=== PATIENT | male | born 1995 ===

== ENCOUNTER 2018-07-21 03:50 | Inpatient (IN) ==
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
[2018-07-21] MEDS ORDERED: fentaNYL 10 mcg/mL Premix Drip 2,500 MCG/250 ML BAG IV.SIG PRN (04:06)
[2018-07-21] MEDS ORDERED: Propofol 1000 mg/100 ml Inj 1,000 MG/100 ML BOTTLE IV.CONT PRN (04:06)
[2018-07-21 04:11] LABS: Baso # (Auto) 0.1 th/mm3 (0.0-0.2); Baso % (Auto) 0.9 % (0.0-2.0); Eos # (Auto) 0.4 th/mm3 (0.0-0.4); Eos % (Auto) 3.2 % (0.0-4.0); Hematocrit 38.1 % (39.0-51.0); Hemoglobin 12.9 gm/dL (13.0-17.0); Lymph # (Auto) 3.7 th/mm3 (1.0-4.8); Mean Corpuscular Hemoglobin 33.1 pg (27.0-34.0); Mean Corpuscular Volume 97.3 fL (80.0-100.0); Mean Platelet Volume 7.7 fL (7.0-11.0); Mono # (Auto) 1.1 th/mm3 (0.0-0.9); Mono % (Auto) 8.4 % (0.0-8.0); Neut # (Auto) 7.8 th/mm3 (1.8-7.7); Neut % (Auto) 59.5 % (16.0-70.0); Platelet Count 251 th/mm3 (150-450); Red Blood Count 3.91 mil/mm3 (4.50-5.90); Red Cell Distribution Width 13.1 % (11.6-17.2); White Blood Count 13.1 th/mm3 (4.0-11.0)
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
[2018-07-21 04:23] LABS: Activated Partial Thrombo Time 31.4 sec (23.4-31.7); INR 0.9 Ratio; Prothrombin Time 9.5 sec (9.8-11.6)
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
[2018-07-21] MEDS ORDERED: Propofol Inj 500 MG/50 ML Vial ONE (04:44)
[2018-07-21 04:52] LABS: Calcium 7.6 mg/dL (8.5-10.1); Carbon Dioxide 20.5 meq/L (21.0-32.0); Potassium 3.5 meq/L (3.5-5.1)
[2018-07-21] MEDS: Sod Chloride 0.9% Inj 1,000 ML IV.CONT SCH ×2 (05:22→18:53)
[2018-07-21 05:24] LABS: ABG Base Excess -3.2 mmol/L (-2-2); ABG PCO2 44 mmHg (38-42); ABG PO2 405 mmHg (61-120)
[2018-07-21 05:30] LABS: Amphetamine Screen,Urine Neg (Neg); Barbiturate Screen,Urine Pos (Neg); Cannabinoid Screen,Urine Neg (Neg); Cocaine Screen,Urine Neg (Neg)
[2018-07-21 05:32] LABS: Bilirubin,Urine Negative (Negative); Clarity,Urine Clear (Clear); Color,Urine Straw (Yellw/Straw); Glucose,Urine (UA) Negative (Negative); Hyaline Casts,Urine 1 /lpf (0-3); Leukocyte Esterase,Urine Negative (Negative); Mucus,Urine Few /lpf (Occasional); Nitrite,Urine Negative (Negative); Specific Gravity,Urine 1.036 (1.002-1.035)
[2018-07-21 05:33] LABS: Opiate Screen,Urine Neg (Neg)
[2018-07-21] MEDS ORDERED: Magnesium Sulfate Inj 4 GM in Sodium Chlor 0.9% Inj 92 ML IV.SIG PRN (06:15)
[2018-07-21] MEDS ORDERED: Magnesium Sulfate Inj 2 GM in Sodium Chlor 0.9% Inj 96 ML IV.SIG PRN (06:15)
[2018-07-21] MEDS ORDERED: Potassium Chlor 40 mEq Premix 40 MEQ/100 ML PIGGYBACK IV.SIG PRN ×2 (06:15)
[2018-07-21] MEDS ORDERED: Potassium Chlor 20 mEq Premix 20 MEQ/100 ML PIGGYBACK IV.SIG PRN ×2 (06:15)
[2018-07-21] MEDS ORDERED: Potassium Phosphate 500 MG Soluble Tablet PO PRN ×2 (06:15)
[2018-07-21] MEDS ORDERED: Potassium Chloride Liq 20 MEQ/15 ML UDC PO PRN ×2 (06:15)
[2018-07-21] MEDS ORDERED: Magnesium Oxide 400 MG Tablet PO PRN (06:15)
[2018-07-21] MEDS ORDERED: Potassium Phosphate Inj 30 MMOL in Sodium Chlor 0.9% Inj 250 ML IV.SIG PRN (06:15)
[2018-07-21] MEDS ORDERED: Sodium Phosphate Inj 30 MMOL in Sodium Chlor 0.9% Inj 250 ML IV.SIG PRN (06:15)
[2018-07-21] MEDS: Propofol 1000 mg/100 ml Inj 1,000 MG/100 ML BOTTLE IV.CONT PRN ×2 (08:15→21:15)
[2018-07-21] MEDS: Pantoprazole Inj 40 MG Vial IV.PUSH SCH (08:54)
[2018-07-21] MEDS: Docusate Sodium Liq 100 MG/10 ML UDC PO SCH ×2 (08:54→20:36)
[2018-07-21] MEDS: Sodium Chloride 0.9% 2 ML Flush BID IV.FLUSH SCH ×2 (08:54→20:39)
[2018-07-21] MEDS: Chlorhexidine 0.12% Oral Kit 15 ML UDC OROPHARYNG SCH ×2 (08:54→20:33)
[2018-07-21] MEDS: Multivitamin Inj 10 ML, Thiamine Inj 100 MG, Folic Acid Inj 1 MG in Sodium Chlor 0.9% I... IV.SIG SCH (09:06)
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
[2018-07-21] MEDS: Oral Hygiene Kit OROPHARYNG SCH ×2 (13:00→18:54)
[2018-07-21] MEDS: Acetaminophen 325 MG Tablet PO PRN (13:30)
[2018-07-21] MEDS: QUEtiapine 25 MG Tablet PO SCH (18:37)
[2018-07-21] MEDS ORDERED: Divalproex 500 MG DR Tablet PO SCH (21:00)
[2018-07-21] MEDS: Vancomycin Inj 1,000 MG in Sodium Chlor 0.9% Inj 250 ML IV.SIG SCH (22:44)
[2018-07-22] MEDS: Oral Hygiene Kit OROPHARYNG SCH ×4 (00:19→18:07)
[2018-07-22] MEDS: Acetaminophen 325 MG Tablet PO PRN (00:26)
[2018-07-22] MEDS: Propofol 1000 mg/100 ml Inj 1,000 MG/100 ML BOTTLE IV.CONT PRN ×2 (03:08→08:45)
[2018-07-22] MEDS: Sod Chloride 0.9% Inj 1,000 ML IV.CONT SCH ×3 (03:10→21:09)
[2018-07-22] MEDS ORDERED: Chlorhexidine Gluconate 2% 1 Pack (2 Cloths) TOPICAL PRN (04:00)
[2018-07-22 04:58] LABS: Baso % (Auto) 0.4 % (0.0-2.0); Eos # (Auto) 0.1 th/mm3 (0.0-0.4); Eos % (Auto) 0.8 % (0.0-4.0); Hematocrit 33.7 % (39.0-51.0); Hemoglobin 11.7 gm/dL (13.0-17.0); Lymph # (Auto) 0.9 th/mm3 (1.0-4.8); Lymph % (Auto) 8.6 % (9.0-44.0); Mean Corpuscular HGB Conc 34.6 % (32.0-36.0); Mean Corpuscular Hemoglobin 33.5 pg (27.0-34.0); Mean Corpuscular Volume 96.7 fL (80.0-100.0); Mean Platelet Volume 7.4 fL (7.0-11.0); Mono # (Auto) 0.7 th/mm3 (0.0-0.9); Mono % (Auto) 6.6 % (0.0-8.0); Neut # (Auto) 8.5 th/mm3 (1.8-7.7); Neut % (Auto) 83.6 % (16.0-70.0); Platelet Count 213 th/mm3 (150-450); Red Blood Count 3.48 mil/mm3 (4.50-5.90); Red Cell Distribution Width 13.2 % (11.6-17.2); White Blood Count 10.2 th/mm3 (4.0-11.0)
[2018-07-22 05:22] LABS: Anion Gap 7 meq/L (5-15); Blood Urea Nitrogen 7 mg/dL (7-18); Calcium 7.9 mg/dL (8.5-10.1); Chloride 108 meq/L (98-107); Glomerular Filtration Rate Greater Than 89 mL/min (>89); Glucose,Random 98 mg/dL (74-106); Potassium 3.3 meq/L (3.5-5.1); Sodium 143 meq/L (136-145)
--- NOTE | 2018-07-22 05:30 | XR ---
EXAM DATE: 07/22/2018 5:27 AM EST AGE/SEX: 89 years / Male INDICATIONS: Respiratory distress. CLINICAL DATA: This is the patient's subsequent encounter. Patient reports that signs and symptoms h ave been present for 2 days and indicates a pain score of Nonresponsive. MEDICAL/SURGICAL HISTORY: . Smoker. . Ventricular shunt. COMPARISON: C, CHEST 1V SINGLE AP, 07/21/2018. . FINDINGS: Stable ETT. NGT in the stomach. Minimal airspace disease in the left lung base. Cardiomediastinal con tours are within normal limits. Remainder of the exam is unchanged. CONCLUSION: 1. Stable ETT. NGT in the stomach. 2. Minimal left lung base airspace disease, presumably atelectasis. Electronically signed by: Clayton Amanda MD Board Certified Radiologist 07/22/2018 5:28 AM EST
[2018-07-22] MEDS: Chlorhexidine Gluconate 2% 1 Pack (2 Cloths) TOPICAL SCH (07:53)
[2018-07-22] MEDS: Vancomycin Inj 1,000 MG in Sodium Chlor 0.9% Inj 250 ML IV.SIG SCH ×2 (08:43→22:13)
[2018-07-22] MEDS: Multivitamin Inj 10 ML, Thiamine Inj 100 MG, Folic Acid Inj 1 MG in Sodium Chlor 0.9% I... IV.SIG SCH (08:45)
[2018-07-22] MEDS: Sodium Chloride 0.9% 2 ML Flush BID IV.FLUSH SCH ×2 (08:48→21:11)
[2018-07-22] MEDS: Pantoprazole Inj 40 MG Vial IV.PUSH SCH (08:48)
[2018-07-22] MEDS: Docusate Sodium Liq 100 MG/10 ML UDC PO SCH ×2 (08:48→21:09)
[2018-07-22] MEDS: lamoTRIgine 25 MG TABLET PO SCH (08:48)
[2018-07-22] MEDS: Chlorhexidine 0.12% Oral Kit 15 ML UDC OROPHARYNG SCH ×2 (08:49→21:08)
[2018-07-22] MEDS: FLUoxetine 20 MG Capsule PO SCH (08:49)
[2018-07-22] MEDS: Dexmedetomidine Inj 200 MCG in Sodium Chlor 0.9% Inj 48 ML IV.CONT PRN ×3 (10:16→21:15)
[2018-07-22] MEDS: Enoxaparin Inj 40 MG/0.4 ML Syringe SQ SCH (10:17)
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
[2018-07-22] MEDS: QUEtiapine 25 MG Tablet PO SCH (18:07)
[2018-07-23] MEDS: Oral Hygiene Kit OROPHARYNG SCH ×4 (00:31→17:30)
[2018-07-23] MEDS: Dexmedetomidine Inj 200 MCG in Sodium Chlor 0.9% Inj 48 ML IV.CONT PRN ×8 (00:50→23:13)
[2018-07-23 04:14] LABS: Baso % (Auto) 0.2 % (0.0-2.0); Hematocrit 32.5 % (39.0-51.0); Lymph # (Auto) 0.3 th/mm3 (1.0-4.8); Lymph % (Auto) 3.5 % (9.0-44.0); Mean Corpuscular HGB Conc 33.9 % (32.0-36.0); Mean Corpuscular Hemoglobin 33.4 pg (27.0-34.0); Mean Corpuscular Volume 98.5 fL (80.0-100.0); Mean Platelet Volume 7.8 fL (7.0-11.0); Mono # (Auto) 0.3 th/mm3 (0.0-0.9); Mono % (Auto) 2.6 % (0.0-8.0); Neut # (Auto) 9.3 th/mm3 (1.8-7.7); Neut % (Auto) 93.7 % (16.0-70.0); Platelet Count 232 th/mm3 (150-450); Red Cell Distribution Width 13.4 % (11.6-17.2); White Blood Count 9.9 th/mm3 (4.0-11.0)
[2018-07-23 04:39] LABS: Alanine Aminotransferase 12 U/L (12-78); Albumin 2.6 g/dL (3.4-5.0); Alkaline Phosphatase 42 U/L (45-117); Anion Gap 7 meq/L (5-15); Aspartate Aminotransferase 17 U/L (15-37); Blood Urea Nitrogen 9 mg/dL (7-18); Calcium 8.2 mg/dL (8.5-10.1); Carbon Dioxide 26.9 meq/L (21.0-32.0); Chloride 106 meq/L (98-107); Glomerular Filtration Rate Greater Than 89 mL/min (>89); Glucose,Random 119 mg/dL (74-106); Potassium 4.3 meq/L (3.5-5.1); Sodium 140 meq/L (136-145); Total Protein 6.2 g/dL (6.4-8.2)
[2018-07-23] MEDS: Chlorhexidine Gluconate 2% 1 Pack (2 Cloths) TOPICAL SCH (05:18)
[2018-07-23 05:50] LABS: ABG Base Excess 0.6 mmol/L (-2-2); ABG PCO2 41 mmHg (38-42); ABG PO2 267 mmHg (61-120)
--- NOTE | 2018-07-23 06:10 | XR ---
EXAM DATE: 07/23/2018 5:48 AM EST AGE/SEX: 89 years / Male INDICATIONS: Respiratory distress. CLINICAL DATA: This is the patient's subsequent encounter. Patient reports that signs and symptoms h ave been present for 3 days and indicates a pain score of Nonresponsive. MEDICAL/SURGICAL HISTORY: . Smoker. . Ventricular shunt. COMPARISON: [facility], CHEST 1V SINGLE AP, 07/22/2018. . FINDINGS: Previous endotracheal tube and nasogastric tube removed. Right-sided shunt tubing present. Basilar ai rspace disease slightly increased from July 15, 2016. CONCLUSION: Extubation with slight increase in basilar airspace disease. Electronically signed by: Miguel Ángel Rboledo MD Board Certified Radiologist 07/23/2018 6:09 AM EST
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
[2018-07-23] MEDS: Pantoprazole Inj 40 MG Vial IV.PUSH SCH (09:25)
[2018-07-23] MEDS: Vancomycin Inj 1,000 MG in Sodium Chlor 0.9% Inj 250 ML IV.SIG SCH ×2 (09:27→19:57)
[2018-07-23] MEDS: Enoxaparin Inj 40 MG/0.4 ML Syringe SQ SCH (09:27)
[2018-07-23] MEDS: Chlorhexidine 0.12% Oral Kit 15 ML UDC OROPHARYNG SCH ×2 (09:27→20:07)
[2018-07-23] MEDS: Docusate Sodium Liq 100 MG/10 ML UDC PO SCH ×2 (09:28→20:07)
[2018-07-23] MEDS: lamoTRIgine 25 MG TABLET PO SCH (09:28)
[2018-07-23] MEDS: Multivitamin Inj 10 ML, Thiamine Inj 100 MG, Folic Acid Inj 1 MG in Sodium Chlor 0.9% I... IV.SIG SCH (09:29)
[2018-07-23] MEDS: Sodium Chloride 0.9% 2 ML Flush BID IV.FLUSH SCH ×2 (09:30→20:07)
[2018-07-23] MEDS: FLUoxetine 20 MG Capsule PO SCH (09:30)
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
[2018-07-23] MEDS: QUEtiapine 25 MG Tablet PO SCH (17:25)
[2018-07-23] MEDS: Sod Chloride 0.9% Inj 1,000 ML IV.CONT SCH ×2 (17:25→17:29)
[2018-07-24] MEDS: Oral Hygiene Kit OROPHARYNG SCH ×4 (00:39→17:01)
[2018-07-24] MEDS: Dexmedetomidine Inj 200 MCG in Sodium Chlor 0.9% Inj 48 ML IV.CONT PRN (00:40)
[2018-07-24] MEDS: Dexmedetomidine Inj 1,000 MCG in Sodium Chlor 0.9% Inj 240 ML IV.CONT PRN (02:42)
[2018-07-24 03:54] LABS: Baso # (Auto) 0.1 th/mm3 (0.0-0.2); Baso % (Auto) 0.8 % (0.0-2.0); Eos # (Auto) 0.3 th/mm3 (0.0-0.4); Eos % (Auto) 2.6 % (0.0-4.0); Hematocrit 34.3 % (39.0-51.0); Hemoglobin 11.7 gm/dL (13.0-17.0); Lymph # (Auto) 1.1 th/mm3 (1.0-4.8); Lymph % (Auto) 10.7 % (9.0-44.0); Mean Corpuscular HGB Conc 34.2 % (32.0-36.0); Mean Corpuscular Hemoglobin 33.5 pg (27.0-34.0); Mean Corpuscular Volume 97.9 fL (80.0-100.0); Mean Platelet Volume 8.4 fL (7.0-11.0); Mono # (Auto) 0.5 th/mm3 (0.0-0.9); Mono % (Auto) 4.9 % (0.0-8.0); Neut # (Auto) 8.4 th/mm3 (1.8-7.7); Platelet Count 288 th/mm3 (150-450); Red Cell Distribution Width 13.3 % (11.6-17.2); White Blood Count 10.4 th/mm3 (4.0-11.0)
[2018-07-24 04:15] LABS: Alanine Aminotransferase 13 U/L (12-78); Albumin 2.7 g/dL (3.4-5.0); Anion Gap 9 meq/L (5-15); Aspartate Aminotransferase 16 U/L (15-37); Blood Urea Nitrogen 13 mg/dL (7-18); Calcium 8.4 mg/dL (8.5-10.1); Carbon Dioxide 25.5 meq/L (21.0-32.0); Chloride 104 meq/L (98-107); Glomerular Filtration Rate Greater Than 89 mL/min (>89); Glucose,Random 102 mg/dL (74-106); Potassium 3.5 meq/L (3.5-5.1); Sodium 138 meq/L (136-145)
[2018-07-24 04:18] LABS: Alkaline Phosphatase 44 U/L (45-117); Total Protein 6.4 g/dL (6.4-8.2)
[2018-07-24] MEDS: Sod Chloride 0.9% Inj 1,000 ML IV.CONT SCH ×3 (04:26→21:41)
[2018-07-24] MEDS: Chlorhexidine Gluconate 2% 1 Pack (2 Cloths) TOPICAL SCH (04:28)
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
[2018-07-24] MEDS: Chlorhexidine 0.12% Oral Kit 15 ML UDC OROPHARYNG SCH ×2 (08:56→21:39)
[2018-07-24] MEDS: Enoxaparin Inj 40 MG/0.4 ML Syringe SQ SCH ×2 (08:57→09:17)
[2018-07-24] MEDS: Vancomycin Inj 1,000 MG in Sodium Chlor 0.9% Inj 250 ML IV.SIG SCH ×2 (08:57→19:57)
[2018-07-24] MEDS: lamoTRIgine 25 MG TABLET PO SCH (08:59)
[2018-07-24] MEDS: FLUoxetine 20 MG Capsule PO SCH (08:59)
[2018-07-24] MEDS: Sodium Chloride 0.9% 2 ML Flush BID IV.FLUSH SCH ×2 (08:59→21:38)
[2018-07-24] MEDS: Pantoprazole Inj 40 MG Vial IV.PUSH SCH (09:00)
[2018-07-24] MEDS: Docusate Sodium Liq 100 MG/10 ML UDC PO SCH ×2 (09:00→21:38)
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
[2018-07-24] MEDS ORDERED: Lidocaine 2%/Epinephrine 1:200,000 PF Inj 20 ML Vial ONE (16:10)
[2018-07-24] MEDS ORDERED: Chlorhexidine Gluconate 0.12% Liq 15 ML UDC ONE (16:10)
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
[2018-07-24] MEDS ORDERED: Phenylephrine/NS 1000 MCG/10ML Syringe IV.PUSH ONE (16:45)
[2018-07-24] MEDS ORDERED: Lidocaine PF 1% Inj 5 ML Syringe OTHER ONE (16:45)
[2018-07-24] MEDS ORDERED: Succinylcholine Inj 100 MG/5 ML Syringe IV.PUSH ONE (16:45)
[2018-07-24] MEDS ORDERED: fentaNYL Citrate Inj 250 MCG/5 ML Ampul ONE (19:00)
[2018-07-24] MEDS ORDERED: HYDROmorphone PF Inj 2 MG/ML Vial ONE (19:00)
[2018-07-24] MEDS ORDERED: fentaNYL Citrate Inj 100 MCG/2 ML Ampul ONE (19:06)
[2018-07-24] MEDS ORDERED: Balanced Salt Opth Irrigation 15 APPLIC/15 ML Bottle ONE (19:08)
[2018-07-24] MEDS: QUEtiapine 25 MG Tablet PO SCH (21:46)
[2018-07-25 04:33] LABS: Baso % (Auto) 0.3 % (0.0-2.0); Hematocrit 32.3 % (39.0-51.0); Hemoglobin 10.9 gm/dL (13.0-17.0); Lymph # (Auto) 0.4 th/mm3 (1.0-4.8); Lymph % (Auto) 3.8 % (9.0-44.0); Mean Corpuscular HGB Conc 33.8 % (32.0-36.0); Mean Corpuscular Hemoglobin 33.4 pg (27.0-34.0); Mean Corpuscular Volume 98.8 fL (80.0-100.0); Mean Platelet Volume 8.8 fL (7.0-11.0); Mono # (Auto) 0.8 th/mm3 (0.0-0.9); Mono % (Auto) 7.5 % (0.0-8.0); Neut # (Auto) 9.6 th/mm3 (1.8-7.7); Neut % (Auto) 88.4 % (16.0-70.0); Platelet Count 317 th/mm3 (150-450); Red Blood Count 3.27 mil/mm3 (4.50-5.90); Red Cell Distribution Width 13.3 % (11.6-17.2); White Blood Count 10.9 th/mm3 (4.0-11.0)
--- NOTE | 2018-07-25 04:47 | XR ---
EXAM DATE: 07/25/2018 4:23 AM EST AGE/SEX: 89 years / Male INDICATIONS: Short of breath. CLINICAL DATA: This is the patient's subsequent encounter. Patient reports that signs and symptoms h ave been present for 4 - 6 days and indicates a pain score of Nonresponsive. MEDICAL/SURGICAL HISTORY: . Smoker. . Ventricular shunt COMPARISON: [facility], CHEST 1V SINGLE AP, 07/23/2018. . FINDINGS: There is improvement in basilar airspace disease since July 23. No new infiltrate or effusion. Hea rt size mildly enlarged. Shunt tubing remains on the right. CONCLUSION: Improvement in bilateral airspace disease since July 23. Electronically signed by: Miguel Ángel Robledo MD Board Certified Radiologist 07/25/2018 4:45 AM EST
[2018-07-25 04:51] LABS: Anion Gap 8 meq/L (5-15); Blood Urea Nitrogen 11 mg/dL (7-18); Calcium 8.3 mg/dL (8.5-10.1); Carbon Dioxide 25.9 meq/L (21.0-32.0); Chloride 104 meq/L (98-107); Glomerular Filtration Rate Greater Than 89 mL/min (>89); Glucose,Random 109 mg/dL (74-106); Potassium 3.9 meq/L (3.5-5.1); Sodium 138 meq/L (136-145)
[2018-07-25] MEDS: Oral Hygiene Kit OROPHARYNG SCH ×5 (04:51→23:08)
[2018-07-25] MEDS: Dexmedetomidine Inj 1,000 MCG in Sodium Chlor 0.9% Inj 240 ML IV.CONT PRN ×2 (04:51→18:24)
[2018-07-25] MEDS: Chlorhexidine Gluconate 2% 1 Pack (2 Cloths) TOPICAL SCH (04:51)
--- NOTE | 2018-07-25 07:21 | MG ---
cc: Shamir Alves MD, PhD DATE: 07/23/2018 TEST #[id number]. TECHNIQUE: This is a 17-channel EEG. DESCRIPTION: The background rhythm shows generalized slowing in the theta and delta frequencies ranging from 4 Hz to 6 Hz. The amplitude is roughly 20 microvolts. There are no lateralizing features identified. Occasional muscle artifact is seen. Photic stimulation was done in a stepwise fashion with no significant driving response. INTERPRETATION: Moderately abnormal study consistent with a moderate encephalopathy. Shamir Alves MD, PhD CAREN/sb , 04:50 PM , 04:56 PM
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
[2018-07-25] MEDS: Chlorhexidine 0.12% Oral Kit 15 ML UDC OROPHARYNG SCH ×2 (08:00→19:59)
[2018-07-25] MEDS: Sod Chloride 0.9% Inj 1,000 ML IV.CONT SCH ×3 (08:01→23:08)
[2018-07-25] MEDS: Pantoprazole Inj 40 MG Vial IV.PUSH SCH (08:01)
[2018-07-25] MEDS: Docusate Sodium Liq 100 MG/10 ML UDC PO SCH ×2 (08:02→21:10)
[2018-07-25] MEDS: lamoTRIgine 25 MG TABLET PO SCH (08:03)
[2018-07-25] MEDS: Sodium Chloride 0.9% 2 ML Flush BID IV.FLUSH SCH ×2 (08:03→20:07)
[2018-07-25] MEDS: Enoxaparin Inj 40 MG/0.4 ML Syringe SQ SCH (08:03)
[2018-07-25] MEDS: FLUoxetine 20 MG Capsule PO SCH (08:05)
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
[2018-07-25 08:56] LABS: Lymphocytes 5 % (9-44); Monocytes 4 % (0-8)
[2018-07-25 08:57] LABS: Platelet Estimate Normal (Normal); Platelet Morphology Normal (Normal)
[2018-07-25] MEDS: Vancomycin Inj 1,000 MG in Sodium Chlor 0.9% Inj 250 ML IV.SIG SCH ×2 (09:42→20:06)
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
[2018-07-25] MEDS: QUEtiapine 25 MG Tablet PO SCH (18:32)
--- NOTE | 2018-07-25 21:50 | CT ---
EXAM DATE: 07/25/2018 9:44 PM EST AGE/SEX: 89 years / Male INDICATIONS: Follow up. Head injury. CLINICAL DATA: This is the patient's subsequent encounter. Patient reports that signs and symptoms h ave been present for 4 - 6 days and indicates a pain score of Nonresponsive. MEDICAL/SURGICAL HISTORY: Non-responsive. Non-responsive. RADIATION DOSE: 56.35 CTDI (mGy) COMPARISON: [facility] [place], CT HEAD W/O CONTRAST, 07/21/2018. . TECHNIQUE: CT of the head without contrast. Using automated exposure control and adjustment of the mA and/or kV according to patient size, radiation dose was kept as low as reasonably achievable to ob tain optimal diagnostic quality images. DICOM format image data is available electronically for revi ew and comparison. FINDINGS: Cerebrum: Right frontal ventriculostomy catheter with tip near the right basal ganglia. Ventricles ar e normal size. There is prominent low-density within the posterior temporal lobes and occipital lobes , greater on the right. The ventricles are normal for age. No evidence of midline shift, mass lesion , hemorrhage or acute infarction. No extraaxial fluid collections are seen. Posterior Fossa: 8 mm hemorrhage in the brainstem/elyse. Fourth ventricle remains patent.. The 4th v entricle is midline. The cerebellopontine angle is unremarkable. Extracranial: The visualized portion of the orbits is intact.. Opacification left maxillary sinus, l eft ethmoid sinus and left sphenoid sinus.. Skull: The calvaria is intact. No evidence of skull fracture. CONCLUSION: 1. 8 mm hemorrhage in the brainstem/elyse. 2. There is prominent low-density within the posterior temporal/occipital lobes. 3. Ventricles appear normal in size. . Electronically signed by: Kt Rojo MD Board Certified Radiologist 07/25/2018 9:48 PM EST
[2018-07-26] MEDS: Oral Hygiene Kit OROPHARYNG SCH ×4 (03:25→23:58)
[2018-07-26] MEDS: Chlorhexidine Gluconate 2% 1 Pack (2 Cloths) TOPICAL SCH (04:58)
[2018-07-26] MEDS: Dexmedetomidine Inj 1,000 MCG in Sodium Chlor 0.9% Inj 240 ML IV.CONT PRN (05:43)
[2018-07-26] MEDS: Sod Chloride 0.9% Inj 1,000 ML IV.CONT SCH (10:22)
[2018-07-26] MEDS: Pantoprazole Inj 40 MG Vial IV.PUSH SCH (10:23)
[2018-07-26] MEDS: Vancomycin Inj 1,000 MG in Sodium Chlor 0.9% Inj 250 ML IV.SIG SCH ×2 (10:23→20:09)
[2018-07-26] MEDS: Chlorhexidine 0.12% Oral Kit 15 ML UDC OROPHARYNG SCH ×2 (10:23→20:09)
[2018-07-26] MEDS: lamoTRIgine 25 MG TABLET PO SCH (10:25)
[2018-07-26] MEDS: Enoxaparin Inj 40 MG/0.4 ML Syringe SQ SCH (10:25)
[2018-07-26] MEDS: Docusate Sodium Liq 100 MG/10 ML UDC PO SCH ×2 (10:25→20:08)
[2018-07-26] MEDS: Sodium Chloride 0.9% 2 ML Flush BID IV.FLUSH SCH ×2 (10:26→20:10)
[2018-07-26] MEDS: FLUoxetine 20 MG Capsule PO SCH (10:26)
[2018-07-26] MEDS: Acetaminophen 325 MG Tablet PO PRN ×2 (11:03→20:07)
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
[2018-07-26] MEDS ORDERED: Acetaminophen Inj 650 MG/65 ML VIAL IV.SIG PRN (11:47)
[2018-07-26] MEDS: QUEtiapine 25 MG Tablet PO SCH (20:07)
[2018-07-27 04:40] LABS: Baso # (Auto) 0.1 th/mm3 (0.0-0.2); Baso % (Auto) 0.7 % (0.0-2.0); Eos # (Auto) 0.1 th/mm3 (0.0-0.4); Eos % (Auto) 1.7 % (0.0-4.0); Hematocrit 37.4 % (39.0-51.0); Hemoglobin 12.8 gm/dL (13.0-17.0); Lymph # (Auto) 1.4 th/mm3 (1.0-4.8); Lymph % (Auto) 17.4 % (9.0-44.0); Mean Corpuscular HGB Conc 34.2 % (32.0-36.0); Mean Corpuscular Hemoglobin 33.4 pg (27.0-34.0); Mean Corpuscular Volume 97.6 fL (80.0-100.0); Mean Platelet Volume 7.5 fL (7.0-11.0); Mono # (Auto) 1.1 th/mm3 (0.0-0.9); Mono % (Auto) 13.2 % (0.0-8.0); Neut # (Auto) 5.4 th/mm3 (1.8-7.7); Platelet Count 466 th/mm3 (150-450); Red Blood Count 3.83 mil/mm3 (4.50-5.90)
[2018-07-27 05:04] LABS: Albumin 2.9 g/dL (3.4-5.0); Anion Gap 10 meq/L (5-15); Blood Urea Nitrogen 7 mg/dL (7-18); Calcium 8.7 mg/dL (8.5-10.1); Carbon Dioxide 25.1 meq/L (21.0-32.0); Chloride 107 meq/L (98-107); Glomerular Filtration Rate Greater Than 89 mL/min (>89); Glucose,Random 92 mg/dL (74-106); Potassium 3.4 meq/L (3.5-5.1); Sodium 142 meq/L (136-145)
[2018-07-27] MEDS: Oral Hygiene Kit OROPHARYNG SCH (05:05)
[2018-07-27 05:10] LABS: Alanine Aminotransferase 56 U/L (12-78); Alkaline Phosphatase 48 U/L (45-117); Aspartate Aminotransferase 37 U/L (15-37); Total Protein 6.8 g/dL (6.4-8.2)
[2018-07-27] MEDS: lamoTRIgine 25 MG TABLET PO SCH (09:12)
[2018-07-27] MEDS: Chlorhexidine 0.12% Oral Kit 15 ML UDC OROPHARYNG SCH (09:12)
[2018-07-27] MEDS: Enoxaparin Inj 40 MG/0.4 ML Syringe SQ SCH (09:13)
[2018-07-27] MEDS: Sodium Chloride 0.9% 2 ML Flush BID IV.FLUSH SCH ×2 (09:13→21:00)
[2018-07-27] MEDS: Senna/Docusate Sodium 8.6/50 MG Tablet PO SCH ×2 (09:13→20:33)
[2018-07-27] MEDS: levETIRAcetam 500 MG Tablet PO SCH ×2 (09:13→20:33)
[2018-07-27] MEDS: FLUoxetine 20 MG Capsule PO SCH (09:13)
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
[2018-07-27] MEDS: QUEtiapine 25 MG Tablet PO SCH (19:38)
[2018-07-27] MEDS: ALPRAZolam 0.5 MG Tablet PO SCH (20:30)
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
--- NOTE | 2018-07-27 23:07 | CT ---
EXAM DATE: 07/27/2018 9:50 PM EST AGE/SEX: 89 years / Male INDICATIONS: Acute Neurological Change CLINICAL DATA: This is the patient's initial encounter. Patient reports that signs and symptoms have been present for 1 day and indicates a pain score of 0/10. MEDICAL/SURGICAL HISTORY: Non-responsive. Non-responsive. RADIATION DOSE: 217.64 CTDI (mGy) [place] [facility] [place]. . TECHNIQUE: CT of the head after intravenous administration of 40 ml Omnipaque 350 (iohexol) nonioni c water-soluble contrast as a cumulative dose for multiple exams. Using automated exposure control a nd adjustment of the mA and/or kV according to patient size, radiation dose was kept as low as reason ably achievable to obtain optimal diagnostic quality images. DICOM format image data is available el ectronically for review and comparison. FINDINGS: 1. CBF (<30%) Volume (ml): 0ml 2. Perfusion (Tmax>6.0s) Volume (ml): 40ml 3. Mismatch Volume (ml) (Tmax>6.0 - CBF): 40ml CONCLUSION: Cerebral blood flow volumes are within normal limits. However, there are some apparent prolonged ramachandran sit times around the brainstem, inferior cerebellum and left frontal lobe and some localized areas of hypoperfusion in these regions are not excluded. The decision for consideration of therapy is multi factorial and multi disciplinary relying on subjec tive and objective clinical data. This data is not construed or intended to be the sole determinant of treatment eligibility. Patient was coded as the attending disseminating significant year with numb ness for 6 months and the first sequence Electronically signed by: Fer Wilkerson MD Board Certified Radiologist 07/27/2018 11:06 PM EST
--- NOTE | 2018-07-28 07:13 | CT ---
EXAM DATE: 07/28/2018 6:54 AM EST AGE/SEX: 89 years / Male INDICATIONS: Acute neurological change. Evaluate for posterior reversible encephalopathy. CLINICAL DATA: This is the patient's subsequent encounter. Patient reports that signs and symptoms h ave been present for 1 week and indicates a pain score of Nonresponsive. MEDICAL/SURGICAL HISTORY: Non-responsive. Non-responsive. RADIATION DOSE: 8.38 CTDI (mGy) COMPARISON: [facility], CTA HEAD W CONTRAST W 3D, 07/28/2018. . TECHNIQUE: Volumetric scanning was performed using a multirow detector CT scanner during bolus infus ion of 60 ml Omnipaque 350 (iohexol) nonionic water-soluble contrast as a cumulative dose for multip le exams. The data was postprocessed with a variety of visualization algorithms including full-volu me maximum intensity projection, multiplanar sliding thin-slab reformation, curved-planar reformation , and surface-rendering techniques. Using automated exposure control and adjustment of the mA and/or kV according to patient size, radiation dose was kept as low as reasonably achievable to obtain opti mal diagnostic quality images. DICOM format image data is available electronically for review and co mparison. FINDINGS: Aortic Arch: The left common carotid artery arises from a common trunk with the right brachiocephali c artery. This a normal variant. No evidence of ostial narrowing Right Carotid: The common carotid artery is intact. The carotid bulb has a normal configuration wit hout ulceration or narrowing. The internal carotid artery lumen is smooth without stenosis. The ext ernal carotid artery is intact. Left Carotid: The common carotid artery is intact. The carotid bulb has a normal configuration with out ulceration or narrowing. The internal carotid artery lumen is smooth without stenosis. The exte rnal carotid artery is intact. Vertebrals: The vertebral arteries have a symmetric diameter. No stenotic lesions are seen. Shunt tubing is seen over the right neck. Percent stenosis is calculated using the diameter of the stenotic region over the diameter of the nor mal distal internal carotid artery. CONCLUSION: Negative CTA of the neck. Electronically signed by: Fer Resendiz MD Board Certified Radiologist 07/28/2018 7:12 AM EST
--- NOTE | 2018-07-28 07:16 | CT ---
EXAM DATE: 07/28/2018 6:53 AM EST AGE/SEX: 89 years / Male INDICATIONS: Acute neurological change. Evaluate for posterior reversible encephalopathy. CLINICAL DATA: This is the patient's subsequent encounter. Patient reports that signs and symptoms h ave been present for 1 week and indicates a pain score of Nonresponsive. MEDICAL/SURGICAL HISTORY: Non-responsive. Non-responsive. RADIATION DOSE: 8.38 CTDI (mGy) COMPARISON: No prior exams available for comparison. TECHNIQUE: Volumetric scanning was performed using a multi-row detector CT scanner during bolus infu karlee of 60 ml Omnipaque 350 (iohexol) nonionic water-soluble contrast as a cumulative dose for multi ple exams. The data was post processed with a variety of visualization algorithms including full vo lume maximum intensity projection, multi-planar sliding thin slab reformation, curved planar reformat ion, and surface rendering techniques. Using automated exposure control and adjustment of the mA and /or kV according to patient size, radiation dose was kept as low as reasonably achievable to obtain o ptimal diagnostic quality images. DICOM format image data is available electronically for review and comparison. FINDINGS: There is excellent visualization of the major intracranial arteries out to the second-order branch ve ssels. There is no evidence for aneurysm, vessel truncation or stenosis, and no evidence for vascula r malformation. The anterior and middle cerebral arteries are patent. The internal carotid arteries a re patent. The right posterior cerebral artery arises from the right internal carotid artery. This is a normal variant. The basilar artery and vertebral arteries appear normal. The basilar artery primar sagar ends as the left posterior cerebral artery. Shunt tubing is present from a right frontal approach . CONCLUSION: Negative CTA of the head. . Electronically signed by: Fer Resendiz MD Board Certified Radiologist 07/28/2018 7:15 AM EST
--- NOTE | 2018-07-28 07:20 | CT ---
EXAM DATE: 07/28/2018 7:02 AM EST AGE/SEX: 89 years / Male INDICATIONS: Acute neurological change. Evaluate for posterior reversible encephalopathy. CLINICAL DATA: This is the patient's subsequent encounter. Patient reports that signs and symptoms h ave been present for 1 week and indicates a pain score of Nonresponsive. MEDICAL/SURGICAL HISTORY: Non-responsive. Non-responsive. RADIATION DOSE: 9.74 CTDI (mGy) COMPARISON: [facility] [place], CT HEAD W/O CONTRAST, 07/25/2018. . TECHNIQUE: Volumetric scanning was performed using a multi-row detector CT scanner during bolus infu karlee of 60 ml Omnipaque 350 (iohexol) nonionic water-soluble contrast as a cumulative dose for multi ple exams. The data was post processed with a variety of visualization algorithms including full vo lume maximum intensity projection, multi-planar sliding thin slab reformation, curved planar reformat ion, and surface rendering techniques. Using automated exposure control and adjustment of the mA and /or kV according to patient size, radiation dose was kept as low as reasonably achievable to obtain o ptimal diagnostic quality images. DICOM format image data is available electronically for review and comparison. FINDINGS: There is excellent visualization of the major dural venous sinuses. They appear patent. Shunt tubing is seen in place from the right frontal approach. Again noted is the hemorrhage in the m idbrain just to the right of midline. There is left maxillary, ethmoid, and sphenoid sinus disease CONCLUSION: The dural venous sinuses appear patent. Electronically signed by: Fer Resendiz MD Board Certified Radiologist 07/28/2018 7:19 AM EST
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
[2018-07-28] MEDS: Senna/Docusate Sodium 8.6/50 MG Tablet PO SCH ×2 (08:53→20:35)
[2018-07-28] MEDS: ALPRAZolam 0.5 MG Tablet PO SCH ×2 (08:53→20:35)
[2018-07-28] MEDS: lamoTRIgine 25 MG TABLET PO SCH (08:54)
[2018-07-28] MEDS: FLUoxetine 20 MG Capsule PO SCH (08:54)
[2018-07-28] MEDS: Enoxaparin Inj 40 MG/0.4 ML Syringe SQ SCH (08:54)
[2018-07-28] MEDS: levETIRAcetam 500 MG Tablet PO SCH ×2 (08:54→20:35)
[2018-07-28] MEDS: Sodium Chloride 0.9% 2 ML Flush BID IV.FLUSH SCH ×2 (08:55→21:19)
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
--- NOTE | 2018-07-28 12:51 | MR ---
EXAM DATE: 07/28/2018 12:25 PM EST AGE/SEX: 89 years / Male INDICATIONS: Hemorrhage. CLINICAL DATA: This is the patient's initial encounter. Patient reports that signs and symptoms have been present for 1 day and indicates a pain score of 0/10. MEDICAL/SURGICAL HISTORY: . Polysubstance abuse. . Shunt placement. ORIF mandible. COMPARISON: [facility] [place], CTA HEAD W CONTRAST W 3D, 07/28/2018. [facility] [place], CT VENOGRAM HEAD W CONTRAST W 3D, 07/27. [facility] [place], CT HEAD W/O CONTRAST, 07/25/2018. . TECHNIQUE: Multiplanar, multisequence examination of the brain was performed without contrast. FINDINGS: Cerebrum: There is symmetric increased T2 signal identified within the westfall and white matter of the bilateral occipital lobes and temporal lobes. These are associated with restricted diffusion. Gradien t echo imaging demonstrates no evidence of hemorrhage within this region. There is mild diffuse sulca l effacement present within this area. The ventricles are normal. Signal void associated with right f rontal ventriculostomy catheter. Tip terminates within the region of the right basal ganglia. White Matter: Symmetric increased T2 signal identified within the elyse and within the occipital lobe s and temporal lobes as noted above. Posterior Fossa: Focal area of increased T1 and T2 signal identified within the elyse associated with hemorrhage and restricted diffusion. Fourth ventricle is patent. Cerebellum is unremarkable. Diffusion Imaging: Restricted diffusion seen within the elyse bilateral occipital lobes and temporal lobes. Extracranial: Chronic opacification of the left maxillary sinus. CONCLUSION: 1. Pontine hemorrhage associated with restricted diffusion. The fourth ventricle is patent. 2. Abnormal increased T2 signal and demonstrates diffusion seen within the bilateral occipital lobes and temporal lobes corresponding with the areas of hypodensity seen on comparison CT. Findings are c ompatible with diffuse infarct. Electronically signed by: Amalia Thompson MD Board Certified Radiologist 07/28/2018 12:50 PM EST
[2018-07-28] MEDS: QUEtiapine 25 MG Tablet PO SCH (17:12)
--- NOTE | 2018-07-28 18:40 | P.PNNEU ---
Subjective Subjective Comments: Pt very lethargic this afternoon, not arousable. He did receive ativan around 1 pm for MRI Active Medications: Active Medications Acetaminophen (Tylenol) 650 mg PO Q6H PRN PRN Reason: PAIN 1-10 AND/OR FEVER >101F Last Admin: 07/26/18 20:07 Dose: 650 mg Al Hydroxide/Mg Hydroxide (Milk Of Beverly Richardson) 30 ml PO BID [facility] Last Admin: 07/28/18 08:54 Dose: Not Given Albuterol (Duoneb Neb (Prn)) 1 ampul NEB Q2HR NEB PRN PRN Reason: WHEEZING Last Admin: 07/22/18 23:16 Dose: 1 ampul Alprazolam (Xanax) 0.25 mg PO Q12H [facility] Last Admin: 07/28/18 08:53 Dose: 0.25 mg Bacitracin (Baciguent Oint) 1 applicatio TOPICAL BID [facility] Stop: 07/29/18 20:59 Last Admin: 07/28/18 08:54 Dose: 1 applicatio Enoxaparin Sodium (Lovenox Inj) 40 mg SQ DAILY [facility] Last Admin: 07/28/18 08:54 Dose: 40 mg Fluoxetine HCl (Prozac) 20 mg PO DAILY [facility] Last Admin: 07/28/18 08:54 Dose: 20 mg Lamotrigine (Lamictal) 50 mg PO DAILY [facility] Last Admin: 07/28/18 08:54 Dose: 50 mg Levetiracetam (Keppra) 500 mg PO BID [facility] Stop: 08/03/18 08:59 Last Admin: 07/28/18 08:54 Dose: 500 mg Ondansetron HCl (Zofran Inj) 4 mg IV.PUSH Q6H PRN PRN Reason: NAUSEA OR VOMITING Quetiapine Fumarate (Seroquel) 50 mg PO QPM [facility] Last Admin: 07/28/18 17:12 Dose: 50 mg Senna/Docusate Sodium (Moon-Colace) 1 tab PO BID [facility] Last Admin: 07/28/18 08:53 Dose: 1 tab Sodium Chloride (Ns Flush) 2 ml IV.FLUSH UNSCH PRN PRN Reason: FLUSH AFTER USING IV ACCESS Sodium Chloride (Ns Flush) 2 ml IV.FLUSH BID [facility] Last Admin: 07/28/18 08:55 Dose: 2 ml Allergies/Adverse Reactions: Allergies Allergy/AdvReac Type Severity Reaction Status Date / Time No Allergy Information Allergy Verified 07/21/18 08:24 Available Physical Exam Vital signs: Vital Signs 07/27/18 19:49 07/27/18 20:30 07/27/18 23:32 Temperature 98.5 F 98.5 F Pulse Rate 94 H 84 Respiratory Rate 17 17 17 Blood Pressure 134/82 134/74 Pulse Oximetry 95 94 L 07/28/18 03:50 07/28/18 08:00 07/28/18 12:00 Temperature 99.0 F 98.9 F 97.9 F Pulse Rate 78 101 H 89 Respiratory Rate 17 18 18 Blood Pressure 131/67 118/59 L 120/64 Pulse Oximetry 94 L 95 98 07/28/18 12:01 07/28/18 16:00 Temperature 98.0 F Pulse Rate 111 H Respiratory Rate 18 Blood Pressure 132/82 Pulse Oximetry 96 98 Intake & Output 07/27/18 07/28/18 07/28/18 18:59 06:59 18:59 Intake Total 900 / 900 Output Total 1275 / 1275 1200 / 1200 Balance -375 / -375 -1200 / -1200 Weight 56.4 kg Intake: Oral 900 / 900 Output: Urine 1275 / 1275 Urine Amount (Catheter) 1200 / 1200 Condom 1200 / 1200 Other: # Voids 2 Date of Last Bowel Movement 07/27/18 07/27/18 07/27/18 # Bowel Movements 1 - Routine Neurological Exam obtunded. Not arousable with sternal rub Pupils miotic, sluggishly reactive EOM intact to occulocephalic maneuvers MOTOR--no spontaneous limb movement. Does not withdraw to stimui - Urinary Catheter Management Indwelling Urethral Catheter Cath placed during this visit: yes, but has since been removed by the nurse Reason for continuing: Decision to DC catheter Insertion date: 07/21/18 Insertion time: 00:00 Removal date: 07/23/18 Removal time: 03:30 Straight Cath placed during this visit: no Condom Cath placed during this visit: no Objective Radiology Results: CTA brain and neck negative for dissection CTV brain negative for venous sinus thrombosis MRI brain c/w diffuse infarction posterior occipital/parietal. Pontine hemorrhage Review/Management - Review/Management Plan: Pontine hemorrhage after trauma. Diffuse abnormalities in posterior parieto- occipital areas. It looks atypical for stroke.I discussed case with radiology and MRI findings are most consistent with PRES. with change in level of consciousness will repeat MRI to follow up on pontine hemorrhage. Move to ICU for monitoring
--- NOTE | 2018-07-28 19:57 | MR ---
EXAM DATE: 07/28/2018 7:29 PM EST AGE/SEX: 89 years / Male INDICATIONS: . Decreased level of consciousness. CLINICAL DATA: This is the patient's initial encounter. Patient reports that signs and symptoms have been present for 1 week and indicates a pain score of 0/10. MEDICAL/SURGICAL HISTORY: . Substance abuse. . ORIF mandible.S zurita placement. COMPARISON: [facility] [place], [place] W/O CONTRAST, 07/28/2018. . TECHNIQUE: Multiplanar, multisequence examination of the brain was performed without contrast. FINDINGS: Problems specific findings: The examination again demonstrates an area of abnormal T2 signal within t he central aspect of the elyse. The findings are most consistent with a small central pontine hemorrha ge. Direct comparison is made to the previous examination timed at 12:02 PM. The overall size of the area of hemorrhage in the amount of edema associated with this is unchanged. Again noted is diffuse, abnormal T2 signal involving the medial aspect of the temporal cortex and juan alberto rly diffusely throughout the occipital cortex. These areas demonstrate significant signal abnormality on the diffusion restricted images as well. The primary consideration would be PRES however, the sig nificant signal on the diffusion restricted imaging is concerning and infarct cannot be entirely excl uded. There is no evidence of downward herniation. No abnormal extra-axial fluid collections are seen. No m ass lesion is identified. Note is made of a ventriculostomy which enters from a right frontal approac h. CONCLUSION: 1. The patient's central pontine hemorrhage is stable in appearance. 2. There is extensive T2 signal and diffusion signal abnormality involving the temporal and occipita l cortex as described above. The primary consideration would be PRES however, there is significant ab normal diffusion signal within this. Please see above discussion. This is stable in appearance when c ompared to previous examination. 3. Opacification of the maxillary sinus on the left. Electronically signed by: Gonzalez Slaughter MD Board Certified Radiologist 07/28/2018 7:56 PM EST
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
[2018-07-29] MEDS: Senna/Docusate Sodium 8.6/50 MG Tablet PO SCH ×2 (08:54→22:22)
[2018-07-29] MEDS: FLUoxetine 20 MG Capsule PO SCH (08:54)
[2018-07-29] MEDS: lamoTRIgine 25 MG TABLET PO SCH (08:54)
[2018-07-29] MEDS: Sodium Chloride 0.9% 2 ML Flush BID IV.FLUSH SCH ×2 (08:55→22:23)
[2018-07-29] MEDS: Acetaminophen 325 MG Tablet PO PRN (10:25)
[2018-07-29 10:46] LABS: Baso # (Auto) 0.1 th/mm3 (0.0-0.2); Baso % (Auto) 1.1 % (0.0-2.0); Eos # (Auto) 0.2 th/mm3 (0.0-0.4); Eos % (Auto) 2.6 % (0.0-4.0); Hematocrit 42.2 % (39.0-51.0); Hemoglobin 14.5 gm/dL (13.0-17.0); Lymph # (Auto) 1.5 th/mm3 (1.0-4.8); Lymph % (Auto) 19.6 % (9.0-44.0); Mean Corpuscular HGB Conc 34.2 % (32.0-36.0); Mean Corpuscular Hemoglobin 33.3 pg (27.0-34.0); Mean Corpuscular Volume 97.4 fL (80.0-100.0); Mean Platelet Volume 6.9 fL (7.0-11.0); Mono # (Auto) 1.2 th/mm3 (0.0-0.9); Mono % (Auto) 16.1 % (0.0-8.0); Neut # (Auto) 4.7 th/mm3 (1.8-7.7); Neut % (Auto) 60.6 % (16.0-70.0); Platelet Count 721 th/mm3 (150-450); Red Blood Count 4.34 mil/mm3 (4.50-5.90); Red Cell Distribution Width 14.4 % (11.6-17.2); White Blood Count 7.7 th/mm3 (4.0-11.0)
--- NOTE | 2018-07-29 11:10 | P.PNNEU ---
Subjective Subjective Comments: Pt is much more alert this AM, conversant and following commands Active Medications: Active Medications Acetaminophen (Tylenol) 650 mg PO Q6H PRN PRN Reason: PAIN 1-10 AND/OR FEVER >101F Last Admin: 07/29/18 10:25 Dose: 650 mg Al Hydroxide/Mg Hydroxide (Milk Of [place]) 30 ml PO BID [facility] Last Admin: 07/29/18 10:38 Dose: Not Given Albuterol (Duoneb Neb (Prn)) 1 ampul NEB Q2HR NEB PRN PRN Reason: WHEEZING Last Admin: 07/22/18 23:16 Dose: 1 ampul Alprazolam (Xanax) 0.25 mg PO Q12H [facility] Last Admin: 07/28/18 20:35 Dose: Not Given Bacitracin (Baciguent Oint) 1 applicatio TOPICAL BID [facility] Stop: 07/29/18 20:59 Last Admin: 07/28/18 21:20 Dose: 1 applicatio Fluoxetine HCl (Prozac) 20 mg PO DAILY [facility] Last Admin: 07/29/18 08:54 Dose: 20 mg Lamotrigine (Lamictal) 50 mg PO DAILY [facility] Last Admin: 07/29/18 08:54 Dose: 50 mg Ondansetron HCl (Zofran Inj) 4 mg IV.PUSH Q6H PRN PRN Reason: NAUSEA OR VOMITING Quetiapine Fumarate (Seroquel) 50 mg PO QPM [facility] Last Admin: 07/28/18 17:12 Dose: 50 mg Senna/Docusate Sodium (Moon-Colace) 1 tab PO BID [facility] Last Admin: 07/29/18 08:54 Dose: 1 tab Sodium Chloride (Ns Flush) 2 ml IV.FLUSH UNSCH PRN PRN Reason: FLUSH AFTER USING IV ACCESS Sodium Chloride (Ns Flush) 2 ml IV.FLUSH BID [facility] Last Admin: 07/29/18 08:55 Dose: 2 ml Allergies/Adverse Reactions: Allergies Allergy/AdvReac Type Severity Reaction Status Date / Time No Allergy Information Allergy Verified 07/21/18 08:24 Available Physical Exam Vital signs: Vital Signs 07/28/18 12:00 07/28/18 12:01 07/28/18 16:00 Temperature 97.9 F 98.0 F Pulse Rate 89 111 H Respiratory Rate 18 18 Blood Pressure 120/64 132/82 Pulse Oximetry 98 96 98 07/28/18 19:38 07/28/18 19:39 07/28/18 20:00 Temperature 97.9 F Pulse Rate 101 H Respiratory Rate 26 H Blood Pressure 111/67 124/67 Pulse Oximetry 97 96 07/28/18 20:30 07/28/18 20:58 07/28/18 21:00 Temperature Pulse Rate 95 H 101 H Respiratory Rate 26 H 26 H Blood Pressure 114/63 110/64 Pulse Oximetry 98 97 97 07/28/18 21:30 07/28/18 22:00 07/28/18 22:30 Temperature Pulse Rate 106 H 92 H 105 H Respiratory Rate 20 30 H 25 H Blood Pressure 132/72 101/64 122/67 Pulse Oximetry 99 97 99 07/28/18 23:00 07/28/18 23:30 07/29/18 00:00 Temperature 98.7 F Pulse Rate 103 H 95 H 96 H Respiratory Rate 33 H 24 24 Blood Pressure 121/65 127/78 123/70 Pulse Oximetry 99 100 97 07/29/18 00:30 07/29/18 01:00 07/29/18 01:30 Temperature Pulse Rate 98 H 81 81 Respiratory Rate 31 H 27 H 28 H Blood Pressure 125/71 112/69 116/70 Pulse Oximetry 100 100 100 07/29/18 02:00 07/29/18 02:30 07/29/18 03:00 Temperature Pulse Rate 80 79 84 Respiratory Rate 25 H 26 H 19 Blood Pressure 117/73 115/68 107/65 Pulse Oximetry 100 100 100 07/29/18 03:30 07/29/18 04:00 07/29/18 04:30 Temperature Pulse Rate 79 97 H 76 Respiratory Rate 25 H 19 25 H Blood Pressure 116/71 113/72 112/62 Pulse Oximetry 100 97 07/29/18 05:00 07/29/18 05:30 07/29/18 06:00 Temperature Pulse Rate 82 75 85 Respiratory Rate 25 H 25 H 26 H Blood Pressure 112/66 114/67 117/80 Pulse Oximetry 07/29/18 07:00 07/29/18 08:00 07/29/18 09:00 Temperature 99.1 F Pulse Rate 71 79 74 Respiratory Rate 18 18 16 Blood Pressure 104/60 113/59 L 121/74 Pulse Oximetry 100 100 Intake & Output 07/28/18 07/29/18 07/29/18 18:59 06:59 18:59 Intake Total 600 / 600 2280 / 2280 Output Total 675 / 675 Balance 600 / 600 1605 / 1605 Weight 56.4 kg Intake: Oral 600 / 600 480 / 480 Anesthesia Amount 1800 / 1800 Output: Urine Amount (Catheter) 675 / 675 Condom 675 / 675 Other: # Voids 3 # Incontinent Voids 2 Date of Last Bowel Movement 07/27/18 07/27/18 07/27/18 # Bowel Movements 1 - Routine Neurological Exam alert, follow commands. speech is fluent CN--unable to count fingers in any field of vision. Pupils 3mm symmetric and reactive. EOM intact MOTOR 5/5 BUE and BLE - Urinary Catheter Management Indwelling Urethral Catheter Cath placed during this visit: yes, but has since been removed by the nurse Reason for continuing: Decision to DC catheter Insertion date: 07/21/18 Insertion time: 00:00 Removal date: 07/23/18 Removal time: 03:30 Straight Cath placed during this visit: no Condom Cath placed during this visit: no Objective Radiology Results: MRI brain last PM--stable pontine hemorrhage and stable bilateral posterior parieto-occipital edema, c/w PRES Laboratory Results - last 24 hr 07/29/18 10:35 WBC 7.7 RBC 4.34 L Hgb 14.5 Hct 42.2 MCV 97.4 MCH 33.3 MCHC 34.2 RDW 14.4 Plt Count 721 H D MPV 6.9 L Neut % (Auto) 60.6 Lymph % (Auto) 19.6 Benzie % (Auto) 16.1 H Eos % (Auto) 2.6 Baso % (Auto) 1.1 Neut # (Auto) 4.7 Lymph # (Auto) 1.5 Benzie # (Auto) 1.2 H Eos # (Auto) 0.2 Baso # (Auto) 0.1 WBC Differential . Differential Comment Auto diff final Review/Management - Review/Management Plan: Pontine hemorrhage after trauma and PRES---stable on last PM MRI Pt is more alert, and MRI stable- ok from neuro standpoint to transfer back to floor. Will Avoid sedative medications
[2018-07-29 11:46] LABS: Alanine Aminotransferase 97 U/L (12-78); Albumin 3.5 g/dL (3.4-5.0); Alkaline Phosphatase 60 U/L (45-117); Anion Gap 6 meq/L (5-15); Aspartate Aminotransferase 38 U/L (15-37); Blood Urea Nitrogen 18 mg/dL (7-18); Calcium 10.1 mg/dL (8.5-10.1); Carbon Dioxide 28.8 meq/L (21.0-32.0); Chloride 103 meq/L (98-107); Glomerular Filtration Rate 68 mL/min (>89); Glucose,Random 109 mg/dL (74-106); Potassium 4.3 meq/L (3.5-5.1); Sodium 138 meq/L (136-145)
[2018-07-29] MEDS: QUEtiapine 25 MG Tablet PO SCH (17:19)
[2018-07-30] MEDS: Senna/Docusate Sodium 8.6/50 MG Tablet PO SCH ×2 (10:10→20:21)
[2018-07-30] MEDS: lamoTRIgine 25 MG TABLET PO SCH (10:44)
[2018-07-30] MEDS: Sodium Chloride 0.9% 2 ML Flush BID IV.FLUSH SCH ×2 (10:44→20:21)
[2018-07-30] MEDS: FLUoxetine 20 MG Capsule PO SCH (10:44)
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
[2018-07-30] MEDS: Acetaminophen 325 MG Tablet PO PRN (17:54)
[2018-07-30] MEDS: QUEtiapine 25 MG Tablet PO SCH (17:55)
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
--- NOTE | 2018-07-30 22:49 | P.PNNEU ---
Subjective Subjective Comments: no new c/o Active Medications: Active Medications Acetaminophen (Tylenol) 650 mg PO Q6H PRN PRN Reason: PAIN 1-10 AND/OR FEVER >101F Last Admin: 07/30/18 17:54 Dose: 650 mg Al Hydroxide/Mg Hydroxide (Milk Of [place] Liq) 30 ml PO BID [facility] Last Admin: 07/30/18 20:21 Dose: 30 ml Albuterol (Duoneb Neb (Prn)) 1 ampul NEB Q2HR NEB PRN PRN Reason: WHEEZING Last Admin: 07/22/18 23:16 Dose: 1 ampul Alprazolam (Xanax) 0.25 mg PO Q12H [facility] Last Admin: 07/28/18 20:35 Dose: Not Given Fluoxetine HCl (Prozac) 20 mg PO DAILY [facility] Last Admin: 07/30/18 10:44 Dose: 20 mg Lamotrigine (Lamictal) 50 mg PO DAILY [facility] Last Admin: 07/30/18 10:44 Dose: 50 mg Ondansetron HCl (Zofran Inj) 4 mg IV.PUSH Q6H PRN PRN Reason: NAUSEA OR VOMITING Quetiapine Fumarate (Seroquel) 50 mg PO QPM [facility] Last Admin: 07/30/18 17:55 Dose: 50 mg Senna/Docusate Sodium (Moon-Colace) 1 tab PO BID [facility] Last Admin: 07/30/18 20:21 Dose: 1 tab Sodium Chloride (Ns Flush) 2 ml IV.FLUSH UNSCH PRN PRN Reason: FLUSH AFTER USING IV ACCESS Sodium Chloride (Ns Flush) 2 ml IV.FLUSH BID [facility] Last Admin: 07/30/18 20:21 Dose: 2 ml Allergies/Adverse Reactions: Allergies Allergy/AdvReac Type Severity Reaction Status Date / Time No Allergy Information Allergy Verified 07/21/18 08:24 Available Physical Exam Vital signs: Vital Signs 07/30/18 01:18 07/30/18 04:00 07/30/18 07:00 Temperature 97.3 F L 98.6 F 99.3 F Pulse Rate 84 93 H 88 Respiratory Rate 18 18 20 Blood Pressure 105/56 L 110/67 109/64 Pulse Oximetry 97 95 97 07/30/18 08:00 07/30/18 13:44 07/30/18 17:00 Temperature 98.7 F 98.2 F Pulse Rate 81 85 Respiratory Rate 14 20 18 Blood Pressure 129/65 157/78 H Pulse Oximetry 98 93 L 07/30/18 19:45 07/30/18 20:00 Temperature 98.5 F Pulse Rate 69 Respiratory Rate 18 Blood Pressure 121/66 Pulse Oximetry 99 95 Intake & Output 07/30/18 07/30/18 07/31/18 06:59 18:59 06:59 Intake Total 810 / 810 480 / 480 Output Total 700 / 700 Balance 110 / 110 480 / 480 Weight 56.4 kg Intake: Oral 810 / 810 480 / 480 Output: Urine Amount (Catheter) 700 / 700 Condom 700 / 700 Other: # Voids 4 # Incontinent Voids 1 Date of Last Bowel Movement 07/29/18 07/29/18 # Bowel Movements 0 3 - Routine Neurological Exam alert, follow commands CN--cortical blindness MOTOR--no focal sx - Urinary Catheter Management Indwelling Urethral Catheter Cath placed during this visit: yes, but has since been removed by the nurse Reason for continuing: Decision to DC catheter Insertion date: 07/21/18 Insertion time: 00:00 Removal date: 07/23/18 Removal time: 03:30 Straight Cath placed during this visit: no Condom Cath placed during this visit: no Review/Management - Review/Management Plan: 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 Recommend follow up MRI brain in 2 weeks
[2018-07-31] MEDS: FLUoxetine 20 MG Capsule PO SCH (09:47)
[2018-07-31] MEDS: Senna/Docusate Sodium 8.6/50 MG Tablet PO SCH ×2 (09:47→20:04)
[2018-07-31] MEDS: lamoTRIgine 25 MG TABLET PO SCH (09:47)
[2018-07-31] MEDS: Sodium Chloride 0.9% 2 ML Flush BID IV.FLUSH SCH ×2 (09:47→20:04)
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
[2018-07-31] MEDS: QUEtiapine 25 MG Tablet PO SCH (17:57)
[2018-07-31] MEDS: Acetaminophen 325 MG Tablet PO PRN (19:50)
--- NOTE | 2018-07-31 20:07 | P.PNNEU ---
Subjective Subjective Comments: alert, c/o pain in both feet Active Medications: Active Medications Acetaminophen (Tylenol) 650 mg PO Q6H PRN PRN Reason: PAIN 1-10 AND/OR FEVER >101F Last Admin: 07/31/18 19:50 Dose: 650 mg Al Hydroxide/Mg Hydroxide (Milk Of Magnlacy Liq) 30 ml PO BID [facility] Last Admin: 07/31/18 20:04 Dose: 30 ml Albuterol (Duoneb Neb (Prn)) 1 ampul NEB Q2HR NEB PRN PRN Reason: WHEEZING Last Admin: 07/22/18 23:16 Dose: 1 ampul Alprazolam (Xanax) 0.25 mg PO Q12H [facility] Last Admin: 07/28/18 20:35 Dose: Not Given Fluoxetine HCl (Prozac) 20 mg PO DAILY [facility] Last Admin: 07/31/18 09:47 Dose: 20 mg Lamotrigine (Lamictal) 50 mg PO DAILY [facility] Last Admin: 07/31/18 09:47 Dose: 50 mg Ondansetron HCl (Zofran Inj) 4 mg IV.PUSH Q6H PRN PRN Reason: NAUSEA OR VOMITING Quetiapine Fumarate (Seroquel) 50 mg PO QPM [facility] Last Admin: 07/31/18 17:57 Dose: 50 mg Senna/Docusate Sodium (Moon-Colace) 1 tab PO BID [facility] Last Admin: 07/31/18 20:04 Dose: 1 tab Sodium Chloride (Ns Flush) 2 ml IV.FLUSH UNSCH PRN PRN Reason: FLUSH AFTER USING IV ACCESS Sodium Chloride (Ns Flush) 2 ml IV.FLUSH BID [facility] Last Admin: 07/31/18 20:04 Dose: 2 ml Valproic Acid (Depakene) 250 mg PO BID [facility] Last Admin: 07/31/18 20:04 Dose: 250 mg Allergies/Adverse Reactions: Allergies Allergy/AdvReac Type Severity Reaction Status Date / Time No Allergy Information Allergy Verified 07/21/18 08:24 Available Physical Exam Vital signs: Vital Signs 07/30/18 23:50 07/31/18 00:00 07/31/18 03:55 Temperature 98.6 F 97.8 F Pulse Rate 77 75 Respiratory Rate 19 20 20 Blood Pressure 127/81 118/65 Pulse Oximetry 98 98 07/31/18 04:04 07/31/18 08:15 07/31/18 11:24 Temperature 98.2 F 98.2 F Pulse Rate 68 96 H Respiratory Rate 17 18 18 Blood Pressure 112/65 129/78 Pulse Oximetry 100 100 07/31/18 15:55 Temperature 98.3 F Pulse Rate 94 H Respiratory Rate 18 Blood Pressure 119/76 Pulse Oximetry 95 Intake & Output 07/31/18 07/31/18 08/01/18 06:59 18:59 06:59 Weight 55.1 kg Other: # Voids 2 # Incontinent Voids 1 Date of Last Bowel Movement 07/31/18 07/29/18 # Bowel Movements 2 - Routine Neurological Exam alert, speech normal CN--unable to count fingers in all visual staples, EOM intact MOTOR 5/5 BUE and BLE - Urinary Catheter Management Indwelling Urethral Catheter Cath placed during this visit: yes, but has since been removed by the nurse Reason for continuing: Decision to DC catheter Insertion date: 07/21/18 Insertion time: 00:00 Removal date: 07/23/18 Removal time: 03:30 Straight Cath placed during this visit: no Condom Cath placed during this visit: no Review/Management - Review/Management Plan: 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 Recommend follow up MRI brain in 2 weeks
[2018-08-01] MEDS: Senna/Docusate Sodium 8.6/50 MG Tablet PO SCH ×2 (09:02→23:14)
[2018-08-01] MEDS: lamoTRIgine 25 MG TABLET PO SCH (09:02)
[2018-08-01] MEDS: Sodium Chloride 0.9% 2 ML Flush BID IV.FLUSH SCH ×2 (09:03→23:23)
[2018-08-01] MEDS: FLUoxetine 20 MG Capsule PO SCH (09:03)
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
[2018-08-01 13:43] LABS: Albumin 3.6 g/dL (3.4-5.0); Anion Gap 8 meq/L (5-15); Aspartate Aminotransferase 40 U/L (15-37); Blood Urea Nitrogen 19 mg/dL (7-18); Calcium 9.6 mg/dL (8.5-10.1); Chloride 102 meq/L (98-107); Glomerular Filtration Rate 67 mL/min (>89); Glucose,Random 91 mg/dL (74-106); Potassium 4.1 meq/L (3.5-5.1); Sodium 140 meq/L (136-145)
[2018-08-01 13:44] LABS: Alanine Aminotransferase 82 U/L (12-78)
[2018-08-01 13:46] LABS: Alkaline Phosphatase 69 U/L (45-117); Total Protein 7.9 g/dL (6.4-8.2)
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
[2018-08-01] MEDS: QUEtiapine 25 MG Tablet PO SCH (18:05)
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
[2018-08-02] MEDS: Sodium Chloride 0.9% 2 ML Flush BID IV.FLUSH SCH ×2 (09:13→21:46)
[2018-08-02] MEDS: FLUoxetine 20 MG Capsule PO SCH (09:13)
[2018-08-02] MEDS: lamoTRIgine 25 MG TABLET PO SCH (09:13)
[2018-08-02] MEDS: Senna/Docusate Sodium 8.6/50 MG Tablet PO SCH ×2 (09:13→21:47)
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
[2018-08-02] MEDS: QUEtiapine 25 MG Tablet PO SCH (17:43)
[2018-08-02] MEDS: Acetaminophen 325 MG Tablet PO PRN (19:18)
[2018-08-03] MEDS: lamoTRIgine 25 MG TABLET PO SCH (09:08)
[2018-08-03] MEDS: Senna/Docusate Sodium 8.6/50 MG Tablet PO SCH ×2 (09:08→22:47)
[2018-08-03] MEDS: FLUoxetine 20 MG Capsule PO SCH (09:09)
[2018-08-03] MEDS: Sodium Chloride 0.9% 2 ML Flush BID IV.FLUSH SCH ×2 (09:11→22:47)
[2018-08-03] MEDS: Acetaminophen 325 MG Tablet PO PRN (10:50)
[2018-08-03] MEDS ORDERED: Gabapentin 300 MG Capsule PO ONE (11:06)
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
[2018-08-03] MEDS: QUEtiapine 25 MG Tablet PO SCH (18:17)
--- NOTE | 2018-08-03 20:55 | P.PNNEU ---
Subjective Subjective Comments: no new c/o Active Medications: Active Medications Acetaminophen (Tylenol) 650 mg PO Q6H PRN PRN Reason: PAIN 1-10 AND/OR FEVER >101F Last Admin: 08/03/18 10:50 Dose: 650 mg Al Hydroxide/Mg Hydroxide (Milk Of Magnlacy Liq) 30 ml PO BID [facility] Last Admin: 08/03/18 09:09 Dose: Not Given Albuterol (Duoneb Neb (Prn)) 1 ampul NEB Q2HR NEB PRN PRN Reason: WHEEZING Last Admin: 07/22/18 23:16 Dose: 1 ampul Alprazolam (Xanax) 0.25 mg PO Q12H [facility] Last Admin: 07/28/18 20:35 Dose: Not Given Fluoxetine HCl (Prozac) 20 mg PO DAILY [facility] Last Admin: 08/03/18 09:09 Dose: 20 mg Lamotrigine (Lamictal) 50 mg PO DAILY [facility] Last Admin: 08/03/18 09:08 Dose: 50 mg Ondansetron HCl (Zofran Inj) 4 mg IV.PUSH Q6H PRN PRN Reason: NAUSEA OR VOMITING Quetiapine Fumarate (Seroquel) 50 mg PO QPM [facility] Last Admin: 08/03/18 18:17 Dose: 50 mg Senna/Docusate Sodium (Moon-Colace) 1 tab PO BID [facility] Last Admin: 08/03/18 09:08 Dose: Not Given Sodium Chloride (Ns Flush) 2 ml IV.FLUSH UNSCH PRN PRN Reason: FLUSH AFTER USING IV ACCESS Sodium Chloride (Ns Flush) 2 ml IV.FLUSH BID [facility] Last Admin: 08/03/18 09:11 Dose: 2 ml Valproic Acid (Depakene) 250 mg PO BID [facility] Last Admin: 08/03/18 09:09 Dose: 250 mg Allergies/Adverse Reactions: Allergies Allergy/AdvReac Type Severity Reaction Status Date / Time No Allergy Information Allergy Verified 07/21/18 08:24 Available Physical Exam Vital signs: Vital Signs 08/03/18 00:00 08/03/18 00:10 08/03/18 04:00 Temperature 97.6 F Pulse Rate 69 Respiratory Rate 18 20 18 Blood Pressure 114/60 Pulse Oximetry 96 08/03/18 04:10 08/03/18 07:20 08/03/18 08:00 Temperature 98 F 98.7 F Pulse Rate 64 72 Respiratory Rate 20 16 Blood Pressure 115/65 102/60 Pulse Oximetry 97 96 96 08/03/18 12:00 08/03/18 12:08 08/03/18 15:35 Temperature 98.5 F Pulse Rate 78 Respiratory Rate 18 18 18 Blood Pressure 117/67 Pulse Oximetry 97 08/03/18 16:25 08/03/18 19:40 Temperature 98.4 F 98.0 F Pulse Rate 87 96 H Respiratory Rate 20 19 Blood Pressure 128/74 127/74 Pulse Oximetry 99 97 Intake & Output 08/03/18 08/03/18 08/04/18 06:59 18:59 06:59 Weight 58.2 kg Other: # Voids 4 2 Date of Last Bowel Movement 08/03/18 # Bowel Movements 1 5 - Routine Neurological Exam alert, speech normal CN--cortical blindness. 

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
[2018-08-04] MEDS: lamoTRIgine 25 MG TABLET PO SCH (09:06)
[2018-08-04] MEDS: Senna/Docusate Sodium 8.6/50 MG Tablet PO SCH (09:07)
[2018-08-04] MEDS: FLUoxetine 20 MG Capsule PO SCH (09:07)
[2018-08-04] MEDS: Sodium Chloride 0.9% 2 ML Flush BID IV.FLUSH SCH ×2 (09:09→21:00)
[2018-08-04] MEDS: QUEtiapine 25 MG Tablet PO SCH (17:04)
[2018-08-05] MEDS: Senna/Docusate Sodium 8.6/50 MG Tablet PO SCH ×3 (03:48→22:09)
[2018-08-05] MEDS: Gabapentin 300 MG Capsule PO PRN ×2 (03:54→14:58)
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
[2018-08-05] MEDS: Sodium Chloride 0.9% 2 ML Flush BID IV.FLUSH SCH ×2 (08:25→22:10)
[2018-08-05] MEDS: lamoTRIgine 25 MG TABLET PO SCH (08:25)
[2018-08-05] MEDS: FLUoxetine 20 MG Capsule PO SCH (08:25)
[2018-08-05] MEDS: QUEtiapine 25 MG Tablet PO SCH (22:09)
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
[2018-08-06] MEDS ORDERED: Gadobutrol PF 2 MMOL/2 ML Vial (for RAD) IV.SIG ONE (09:01)
[2018-08-06] MEDS: lamoTRIgine 25 MG TABLET PO SCH (09:30)
[2018-08-06] MEDS: FLUoxetine 20 MG Capsule PO SCH (09:30)
[2018-08-06] MEDS: Sodium Chloride 0.9% 2 ML Flush BID IV.FLUSH SCH ×2 (09:31→22:29)
[2018-08-06] MEDS: Senna/Docusate Sodium 8.6/50 MG Tablet PO SCH ×2 (09:31→22:32)
--- NOTE | 2018-08-06 10:18 | MR ---
EXAM DATE: 08/06/2018 9:24 AM EST AGE/SEX: 23 years / Male INDICATIONS: . Brain stem hemorrhage. CLINICAL DATA: This is the patient's subsequent encounter. Patient reports that signs and symptoms h ave been present for 3 weeks and indicates a pain score of 3/10. MEDICAL/SURGICAL HISTORY: . substance abuse . ORIF right mandible, non programmable [employer] shunt COMPARISON: [facility] [place], MR HEAD W/O CONTRAST, 07/28/2018. . TECHNIQUE: Multiplanar, multisequence examination of the brain was performed without and with 5 ml Ga davist (gadobutrol) contrast as a single exam dose. FINDINGS: The focal area of signal abnormality in the central elyse is similar in size when compared to 07/28/2018 . There is a slightly lesser degree of T1 shortening and a similar degree of T2 prolongation. On the susceptibility-weighted gradient echo images, there is a thin dark rim about the signal abnormality c haracteristic of evolving blood products. Bilateral areas of T2 prolongation in the medial occipital cortex is stable from prior and demonstrat es T2 shine through on the ADC map images with the exception of the anterior right occipital region, where there is mild restricted diffusion and subcortical T1 shortening characteristic of cortical hem orrhage. The ventricles are normal in size. Right ventriculostomy catheter in place. No extra-axial fluid or b lood.. CONCLUSION: 1. Stable size and expected signal evolution of blood products in the central pontine hemorrhage. 2. Interval development of thin cortical hemorrhage in the right anterior occipital infarct. The ot er signal abnormalities in bilateral medial occipital cortex are stable in appearance and demonstrate T2 shine through on the diffusion ADC maps. Electronically signed by: Evens Marquez MD Board Certified Radiologist 08/06/2018 10:17 AM EST
[2018-08-06] MEDS: Gabapentin 300 MG Capsule PO PRN (18:28)
[2018-08-06] MEDS: QUEtiapine 25 MG Tablet PO SCH (22:32)
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
[2018-08-07] MEDS: Sodium Chloride 0.9% 2 ML Flush BID IV.FLUSH SCH ×2 (10:34→21:14)
[2018-08-07] MEDS: Senna/Docusate Sodium 8.6/50 MG Tablet PO SCH ×2 (10:37→21:14)
[2018-08-07] MEDS: FLUoxetine 20 MG Capsule PO SCH (10:37)
[2018-08-07] MEDS: lamoTRIgine 25 MG TABLET PO SCH (10:38)
[2018-08-07] MEDS ORDERED: QUEtiapine 25 MG Tablet PO SCH (11:00)
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
[2018-08-07] MEDS: QUEtiapine 25 MG Tablet PO SCH (23:39)
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
[2018-08-08] MEDS: FLUoxetine 20 MG Capsule PO SCH (09:49)
[2018-08-08] MEDS: Senna/Docusate Sodium 8.6/50 MG Tablet PO SCH ×2 (09:49→22:26)
[2018-08-08] MEDS: lamoTRIgine 25 MG TABLET PO SCH (09:49)
[2018-08-08] MEDS: QUEtiapine 25 MG Tablet PO SCH ×2 (09:49→17:43)
[2018-08-08] MEDS: Sodium Chloride 0.9% 2 ML Flush BID IV.FLUSH SCH ×2 (09:53→22:26)
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
[2018-08-09] MEDS: QUEtiapine 25 MG Tablet PO SCH ×4 (00:27→20:44)
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
[2018-08-09] MEDS: lamoTRIgine 25 MG TABLET PO SCH (09:30)
[2018-08-09] MEDS: FLUoxetine 20 MG Capsule PO SCH (09:31)
[2018-08-09] MEDS: Senna/Docusate Sodium 8.6/50 MG Tablet PO SCH ×2 (09:31→20:44)
[2018-08-09] MEDS: Sodium Chloride 0.9% 2 ML Flush BID IV.FLUSH SCH ×2 (10:39→20:44)
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
[2018-08-10] MEDS: QUEtiapine 25 MG Tablet PO SCH ×3 (06:02→20:52)
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
[2018-08-10] MEDS: lamoTRIgine 25 MG TABLET PO SCH (09:01)
[2018-08-10] MEDS: Senna/Docusate Sodium 8.6/50 MG Tablet PO SCH ×2 (09:01→20:52)
[2018-08-10] MEDS: FLUoxetine 20 MG Capsule PO SCH (09:01)
[2018-08-10] MEDS: Acetaminophen 325 MG Tablet PO PRN (20:51)
[2018-08-11] MEDS: Sodium Chloride 0.9% 2 ML Flush BID IV.FLUSH SCH ×3 (02:45→22:26)
[2018-08-11] MEDS: QUEtiapine 25 MG Tablet PO SCH ×3 (06:24→20:54)
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
[2018-08-11] MEDS: FLUoxetine 20 MG Capsule PO SCH (09:10)
[2018-08-11] MEDS: Senna/Docusate Sodium 8.6/50 MG Tablet PO SCH ×2 (09:10→20:55)
[2018-08-11] MEDS: lamoTRIgine 25 MG TABLET PO SCH (09:11)
[2018-08-11] MEDS: Gabapentin 300 MG Capsule PO PRN (12:21)
[2018-08-12 04:40] LABS: Baso # (Auto) 0.1 th/mm3 (0.0-0.2); Baso % (Auto) 1.1 % (0.0-2.0); Eos # (Auto) 0.2 th/mm3 (0.0-0.4); Eos % (Auto) 3.4 % (0.0-4.0); Hematocrit 40.8 % (39.0-51.0); Hemoglobin 13.8 gm/dL (13.0-17.0); Lymph # (Auto) 1.5 th/mm3 (1.0-4.8); Lymph % (Auto) 22.2 % (9.0-44.0); Mean Corpuscular HGB Conc 33.9 % (32.0-36.0); Mean Corpuscular Hemoglobin 33.8 pg (27.0-34.0); Mean Corpuscular Volume 99.8 fL (80.0-100.0); Mean Platelet Volume 8.1 fL (7.0-11.0); Mono # (Auto) 0.8 th/mm3 (0.0-0.9); Mono % (Auto) 11.5 % (0.0-8.0); Neut # (Auto) 4.2 th/mm3 (1.8-7.7); Neut % (Auto) 61.8 % (16.0-70.0); Platelet Count 329 th/mm3 (150-450); Red Blood Count 4.09 mil/mm3 (4.50-5.90); Red Cell Distribution Width 15.1 % (11.6-17.2); White Blood Count 6.8 th/mm3 (4.0-11.0)
[2018-08-12 05:28] LABS: Calcium 9.2 mg/dL (8.5-10.1); Carbon Dioxide 29.8 meq/L (21.0-32.0)
[2018-08-12 05:30] LABS: Potassium 4.3 meq/L (3.5-5.1)
[2018-08-12] MEDS: Acetaminophen 325 MG Tablet PO PRN (08:43)
[2018-08-12] MEDS: QUEtiapine 25 MG Tablet PO SCH ×3 (08:44→20:36)
[2018-08-12] MEDS: Senna/Docusate Sodium 8.6/50 MG Tablet PO SCH ×2 (08:44→20:36)
[2018-08-12] MEDS: FLUoxetine 20 MG Capsule PO SCH (08:44)
[2018-08-12] MEDS: lamoTRIgine 25 MG TABLET PO SCH (08:45)
[2018-08-12] MEDS: Sodium Chloride 0.9% 2 ML Flush BID IV.FLUSH SCH ×2 (08:46→20:36)
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
[2018-08-12] MEDS: Gabapentin 300 MG Capsule PO PRN ×2 (14:00→20:36)
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
[2018-08-13] MEDS: FLUoxetine 20 MG Capsule PO SCH (09:51)
[2018-08-13] MEDS: Senna/Docusate Sodium 8.6/50 MG Tablet PO SCH (09:51)
[2018-08-13] MEDS: Sodium Chloride 0.9% 2 ML Flush BID IV.FLUSH SCH (09:51)
[2018-08-13] MEDS: lamoTRIgine 25 MG TABLET PO SCH (09:51)
[2018-08-13 16:20] VITALS: BP 112/80; PULSE 92; TEMP 98.1; O2SAT 96
[2018-08-13 17:03] VITALS: RESP 17
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
== END 2018-08-13 16:45 | disposition home or self-care (01) | DRG 131 ==
LOC: NEPI 03:50 → EDBD 04:18 → NEDA 04:18 → N03 04:20 → N06 07-27 19:16 → N03 07-28 19:37 → N06 07-29 15:38 → N05 07-30 13:33
PROVIDERS: ADMIT Surgery; ATTEND Surgery
PROC: ORIFMAN (2018-07-24 16:45)
DX: F90.9 Attention-deficit hyperactivity disorder, unspecified type; Z98.2 Presence of cerebrospinal fluid drainage device; Z78.1 Physical restraint status; R62.50 Unspecified lack of expected normal physiological development in childhood; R11.10 Vomiting, unspecified; S02.621A Fracture of subcondylar process of right mandible, initial encounter for closed fracture; J96.90 Respiratory failure, unspecified, unspecified whether with hypoxia or hypercapnia; F31.9 Bipolar disorder, unspecified; F17.210 Nicotine dependence, cigarettes, uncomplicated; T17.918A Gastric contents in respiratory tract, part unspecified causing other injury, initial encounter; Y04.0XXA Assault by unarmed brawl or fight, initial encounter; G91.9 Hydrocephalus, unspecified; R45.87 Impulsiveness; Y93.9 Activity, unspecified; S06.389A Contusion, laceration, and hemorrhage of brainstem with loss of consciousness of unspecified duration, initial encounter; F10.10 Alcohol abuse, uncomplicated; Z91.19 Patient's noncompliance with other medical treatment and regimen; H47.619 Cortical blindness, unspecified side of brain; J45.909 Unspecified asthma, uncomplicated; Y90.6 Blood alcohol level of 120-199 mg/100 ml; G93.40 Encephalopathy, unspecified
CPT/HCPCS: 0042T; 31500; 36600; 51702; 70450; 70486; 70496; 70498; 70551; 70553; 71010; 71045; 71260; 72125; 72170; 74177; 76497; 76499; 76937; 80048; 80053; 80307; 81001; 82805; 85025; 85610; 85730; 86850; 86900; 86901; 87641; 92507; 92526; 92610; 94002; 94003; 94150; 94640; 94651; 94656; 94657; 94664; 94665; 94667; 94668; 95819; 96125; 97110; 97116; 97127; 97163; 97166; 97530; 97532; 97535; 99285; 99291; A9585; C1713; C9113; C9238; G0195; G0390; G0515; J0131; J0171; J0330; J0696; J1100; J1170; J1650; J1953; J2060; J2370; J2405; J2704; J3010; J3370; J3411; J7030; J7040; J7050; Q9967